=== PATIENT | female | born 1955 | race American Indian/Alaskan Native ===

== ENCOUNTER 2018-10-31 15:53 | Emergency (ER) | payer SELFPAY ==
--- NOTE | 2018-10-31 16:17 | C.PDOC ---
History Of Present Illness 63 year old female presents to the ED requesting refill of medications for HTN. The patient states she is visiting from out of town and ran out of her medications. Denies any pain or dizziness. Time Seen by Provider: 10/31/18 16:05 Chief Complaint (Nursing): Med Refill History Per: Patient History/Exam Limitations: no limitations Past Medical History Reviewed: Historical Data, Nursing Documentation, Vital Signs Vital Signs: Last Vital Signs Temp 97.7 F 10/31/18 16:01 Pulse 74 10/31/18 16:01 Resp 17 10/31/18 16:01 BP 124/78 10/31/18 16:01 Pulse Ox 97 10/31/18 16:01 - Medical History PMH: HTN Surgical History: Cholecystectomy Family History: States: Unknown Family Hx - Social History Hx Alcohol Use: No Hx Substance Use: No - Immunization History Hx Tetanus Toxoid Vaccination: No Hx Influenza Vaccination: No Hx Pneumococcal Vaccination: No Review Of Systems Neurological: Negative for: Dizziness, Other (no pain. ) Physical Exam - Physical Exam Appears: Well, Non-toxic, No Acute Distress Skin: Normal Color, Warm, Dry Head: Atraumatic, Normacephalic Eye(s): bilateral: Normal Inspection Oral Mucosa: Moist Neck: Normal ROM Chest: Symmetrical Cardiovascular: Rhythm Regular, No Murmur Respiratory: Normal Breath Sounds, No Rales, No Rhonchi, No Wheezing Neurological/Psych: Oriented x3, Normal Speech ED Course And Treatment O2 Sat by Pulse Oximetry: 97 (RA) Pulse Ox Interpretation: Normal Medical Decision Making Medical Decision Making: Progress/Update: Patient stable for discharge home. Prescribed Metoprolol Disposition Counseled Patient/Family Regarding: Diagnosis, Need For Followup, Rx Given - Disposition Disposition: HOME/ ROUTINE Disposition Time: 16:15 Condition: GOOD Additional Instructions: Take medicine as prescribed Prescriptions: Metoprolol Francis/Hydrochlorothiaz [Metoprolol ER-Hctz 25-12.5 mg] 1 each PO DAILY #30 tab.er.24h Instructions: Metoprolol and Hydrochlorothiazide Forms: [facility] ([place]) - POA Present On Arrival: None - Clinical Impression Clinical Impression: Medicine refill - PA / [employer] WORK[employer] / Resident Statement MD/DO has reviewed & agrees with the documentation as recorded. - Scribe Statement The provider has reviewed the documentation as recorded by the Scribe (Liyah Elliott) All medical record entries made by the Scribe were at my direction and personally dictated by me. I have reviewed the chart and agree that the record accurately reflects my personal performance of the history, physical exam, medical decision making, and the department course for this patient. I have also personally directed, reviewed, and agree with the discharge instructions and disposition.
[2018-10-31 16:20] VITALS: BP 124/78; PULSE 74; RESP 17; TEMP 97.7; O2SAT 97
== END 2018-10-31 16:29 | disposition home or self-care (01) ==
LOC: C.ER 15:53 → MERGE 15:53 → C.ER 16:29
DX: Z76.0 Encounter for issue of repeat prescription (principal); I10 Essential (primary) hypertension